=== PATIENT | male | born 1970 | race Caucasian/White ===

== ENCOUNTER 2019-09-09 06:36 | Day surgery (SDC) | payer OTHER ==
[2019-09-09] VITALS (9 sets, daily range): BP systolic 98–118; BP diastolic 61–70
[~2019-09-09] VITALS: Ht 182.9 cm; Wt 83.9 kg
[~2019-09-09 06:36] MED LIST: BIKTARVY 50-201 EACH PO; LR 1000ml 1,000 ML IVLG SCH
--- NOTE | 2019-09-09 08:25 | Anethesia Preoperative Eval ---
Anesthesia Pre-op PMH/ROS General Date of Evaluation: Sep 09, 2019 Time of Evaluation: 08:25 Anesthesiologist: starr ASA Score: ASA 2 Mallampati Score Class I : Soft palate, uvula, fauces, pillars visible Class II: Soft palate, uvula, fauces visible Class III: Soft palate, base of uvula visible Class IV: Only hard plate visible Mallampati Classification: Class II Surgeon: terry Diagnosis: screening Surgical Procedure: colonoscopy Anesthesia History: none Family History: no anesthesia problems Allergies: Coded Allergies: No Known Allergies (Unverified , 09/09/19) Medications: see eMAR Patient NPO?: Yes NPO Date: Sep 09, 2019 NPO Time: 00:01 Past Medical History Cardiovascular: Denies: HTN, CAD, CA, valve dz, arrhythmia, other Pulmonary: Denies: asthma, COPD, CABRERA, other Gastrointestinal/Genitourinary: Denies: GERD, CRI, ESRD, other Neurologic/Psychiatric: Denies: dementia, CVA, depression/anxiety, TIA, other Endocrine: Denies: DM, hypothyroidism, steroids, other HEENT: Denies: cataract (L), cataract (R), glaucoma, [place] (L), [place] (R), other Hematology/Immune: Denies: anemia, DVT, bleeding disorder, other PMH Narrative: HIV Anesthesia Pre-op Phys. Exam Physician Exam Last Vital Signs Date Time Temp Pulse Resp B/P (MAP) Pulse Ox O2 Delivery O2 Flow Rate FiO2 09/09/19 07:05 Room Air 09/09/19 07:03 97.5 62 16 118/61 98 Constitutional: NAD Neurologic: CN 2-12 intact Cardiovascular: RRR Respiratory: CTA Gastrointestinal: S/NT/ND Airway Exam Mallampati Classification 2 Mallampati Score: Class II MO: full ROM: full Dentures: no upper, no lower Anesthesia Pre-op A/P Studies Pre-op Studies: EKG - EKG Risk Assessment & Plan Plan: mac Status Change Before Surgery: No Pre-Antibiotics Drug: Emely Nguyen CRNA Sep 09, 2019 08:25
--- NOTE | 2019-09-09 08:28 | Pre-Procedure Note/Attestation ---
Pre-Procedure Note/Attestation Complete Prior to Procedure Planned Procedure: not applicable Procedure Narrative: screening colon Indications for Procedure Pre-Operative Diagnosis: screening Attestation I attest that I discussed the nature of the procedure; its benefits; risks and complications; and alternatives (and the risks and benefits of such alternatives ), prior to the procedure, with the patient (or the patient's legal electronics parts sales representative). I attest that, if there was a reasonable possibility of needing a blood transfusion, the patient (or the patient's legal electronics parts sales representative) was given the [facility] standardized written summary, pursuant to the Yasmani Teagan Blood Safety Act ([place] Health and Safety Code # 1645, as amended). I attest that I re-evaluated the patient just prior to the surgery and that there has been no change in the patient's H&P, except as documented below: Jana Knox MD Sep 09, 2019 08:28
--- NOTE | 2019-09-09 08:28 | Short Stay Surgery H&P ---
History of Present Illness History of Present Illness Chief Complaint see typed H&P HPI Frankie Kelly Jr is a 49 year old male who was admitted on for Colon Screening Patient History Allergies: Coded Allergies: No Known Allergies (Unverified , 09/09/19) Medication History Scheduled Bictegrav/Emtricit/Tenofov Ala (Biktarvy 50-200-25 mg Tablet), 1 EACH PO DAILY, (Reported) Physical Exam Vital Signs Last Vital Signs Date Time Temp Pulse Resp B/P (MAP) Pulse Ox O2 Delivery O2 Flow Rate FiO2 09/09/19 07:05 Room Air 09/09/19 07:03 97.5 62 16 118/61 98 Plan Attestation Are the patient's medical conditions optimized for surgery? Jana Knox MD Sep 09, 2019 08:28
[2019-09-09] MEDS ORDERED: LR 1000ml ONE (08:30)
[2019-09-09] MEDS ORDERED: Lidocaine 1% MPF 10mg/ml 5ml ONE (08:30)
--- NOTE | 2019-09-09 08:55 | Endoscopy Procedure Note ---
Endoscopy Procedure Note General Indication for Procedure: screen Procedures Performed: colonoscopy Operative Findings/Diagnosis: normal Anesthesia Anesthesiologist: infertility medical assistant Anesthesia: MAC Inserted Devices Implant(s) used?: No GI Core Measures 50 yrs or older w/o bx or poly: Yes 10yrs. F/U recommended: Yes If not recommended, why?: 18 years or older w/prev. colo: No <3yrs. since last colonoscopy: No Med reason:<3 yrs.: System Reason:<3 yrs.: Last colonoscopy >= to 3yrs: Yes Jana Knox MD Sep 09, 2019 08:55
--- NOTE | 2019-09-09 09:02 | Immediate Post-Op Evaluation ---
Immediate Post-Op Evalulation Immediate Post-Op Evalulation Procedure: Colonoscopy Date of Evaluation: Sep 09, 2019 Time of Evaluation: 09:02 IV Fluids: 500 Blood Pressure Systolic: 101 Blood Pressure Diastolic: 66 Pulse Rate: 62 Respiratory Rate: 14 O2 Sat by Pulse Oximetry: 99 Temperature (Fahrenheit): 97.2 Nausea: No Vomiting: No Patient Status: awake, reacts, patent Hydration Status: adequate Drug: none RafaelriEmely storm CRNA Sep 09, 2019 09:02
--- NOTE | 2019-09-09 09:03 | Brief Operative Note ---
Immediate Post Operative Note Operative Note Chief Complaint: screen Pre-op Diagnosis: screening Procedure: colon Post-op Diagnosis: normal Surgeon: sima Specimen: none Complications: none Fluids: per anesthesia Implant(s) used?: No Jana Knox MD Sep 09, 2019 09:03
--- NOTE | 2019-09-09 10:00 | Operative Note - Dictated ---
DATE OF OPERATION: 09/09/2019 GASTROENTEROLOGY PROCEDURE REPORT PROCEDURE: Screening colonoscopy. SURGEON: Jana Knox MD. ANESTHESIA: Please see the separate anesthesia report for details. PRE-ENDOSCOPIC DIAGNOSIS: Screening colonoscopy. POST-ENDOSCOPIC DIAGNOSIS: Normal colonoscopy. DESCRIPTION OF PROCEDURE: The procedure, its risks, indications, alternatives, and possible complications were explained to the patient and informed consent was obtained. The patient was then sedated in the left lateral decubitus position and a rectal exam was done, which was unremarkable. The colonoscope was then introduced into the rectum and advanced to 10 cm into the terminal ileum. The colonoscope was then gradually withdrawn and mucosa examined carefully. Examination was concluded with the retroflex view of the rectum. There was no abnormality seen in the terminal ileum as well as colonic mucosa. The colonoscope was removed. The patient was sent to Recovery in good condition. COMPLICATIONS: None. RECOMMENDATIONS: 1. Follow up with primary physician. 2. Repeat colonoscopy in 10 years. Thank you for asking me to participate in the care of this patient. Jana Knox M.D. DR: ESTEFANY JOB#: [id number] CC: Jana Knox M.D.; Fax#: [phone]
--- NOTE | 2019-09-09 14:58 | 48 Hour Post Anesthesia Eval ---
Post Anesthesia Evaluation Procedure: Colonoscopy Date of Evaluation: Sep 09, 2019 Time of Evaluation: 14:58 Blood Pressure Systolic: 107 0: 70 Pulse Rate: 57 Respiratory Rate: 14 O2 Sat by Pulse Oximetry: 98 Airway: patent Nausea: No Vomiting: No Hydration Status: adequate Cardiopulmonary Status: stable Mental Status/LOC: patient returned to baseline Post-Anesthesia Complications: none Follow-up care needed: N/A Emely Crane CRNA Sep 09, 2019 14:58
== END 2019-09-09 10:00 | disposition home or self-care (01) ==
LOC: GAS 06:36
DX: Z12.11 Encounter for screening for malignant neoplasm of colon (principal); B20 Human immunodeficiency virus [HIV] disease
CPT/HCPCS: 45378; 94003; J2704; J7120; 94150